=== PATIENT | female | born 1995 | race Hispanic/Latino ===

== ENCOUNTER 2017-05-13 11:40 | Emergency (ER) | payer OTHER ==
[2017-05-13 11:44] VITALS: BMI 22.8
[2017-05-13 11:45] VITALS: BP 112/61; PULSE 74; RESP 16; TEMP 98.5; O2SAT 99
[2017-05-13] MEDS ORDERED: Iohexol 240 (50 ml) PO ONE (12:03)
[2017-05-13] MEDS ORDERED: Sodium Chloride 0.9% 1,000 ML IV STA (12:03)
--- NOTE | 2017-05-13 12:15 | ED PDOC ---
HPI: Female Pain Time Seen by Provider: 05/13/17 11:52 Chief Complaint (Nursing): Female Genitourinary Chief Complaint (Provider): Pelvic Pain History Per: Patient History/Exam Limitations: no limitations Onset/Duration Of Symptoms: Days (x1 month) Current Symptoms Are (Timing): Still Present Additional Complaint(s): Jessa Gonzalez is a 21 year old female presenting to the ED, referred by Dr. Christensen, for an evaluation of on and off pelvic pain occurring for 1 month prior to arrival. The patient reports she was initially seen by her PMD for an evaluation of the pain and was referred to [facility]. She had blood work and urine culture completed and sent to urologist, Dr. Stokes. The patient also states having an ultrasound completed on 04/27/17 reporting one small cyst present on her right side. The patient was prescribed Bactrim, completed course, and is now on Macrobid. She states associated dysuria and urinary frequency. She reports having clear white vaginal discharge, but this is normal for her. The patient denies nausea, vomiting, diarrhea, chest pain, shortness of breath, dizziness, numbness, tingling, weakness, headache, or hematuria. PMD: MD Fermin & Gabino Rueda MD Past Medical History Reviewed: Historical Data, Nursing Documentation, Vital Signs Vital Signs: Last Vital Signs Temp 98.5 F 05/13/17 11:44 Pulse 74 05/13/17 11:44 Resp 16 05/13/17 11:44 BP 112/61 05/13/17 11:44 Pulse Ox 99 05/13/17 11:44 - Medical History PMH: No Chronic Diseases - Surgical History Surgical History: No Surg Hx - Family History Family History: States: No Known Family Hx - Social History Current smoker - smoking cessation education provided: No Ex-Smoker (has not smoked in the last 12 months): No Alcohol: None Drugs: Denies - Home Medications Home Medications: Ambulatory Orders Medication Instructions Recorded Ciprofloxacin HCl [Cipro] 500 mg PO BID 7 Days tab 05/13/17 Ibuprofen [Motrin] 600 mg PO TID 7 Days tab 05/13/17 Phenazopyridine HCl [Pyridium] 100 mg PO BID PRN 5 Days tab 05/13/17 - Allergies Allergies/Adverse Reactions: Allergies Allergy/AdvReac Type Severity Reaction Status Date / Time cefdinir [From Omnicef] Allergy RASH Verified 05/13/17 11:43 Review of Systems ROS Statement: Except As Marked, All Systems Reviewed And Found Negative Cardiovascular: Negative for: Chest Pain Respiratory: Negative for: Shortness of Breath Gastrointestinal: Positive for: Abdominal Pain. Negative for: Nausea, Vomiting , Diarrhea Genitourinary Female: Positive for: Dysuria, Frequency, Vaginal Discharge, Pelvic Pain. Negative for: Hematuria Neurological: Negative for: Weakness, Numbness, Headache, Dizziness, Other (no tingling) Physical Exam - Reviewed Nursing Documentation Reviewed: Yes Vital Signs Reviewed: Yes - Physical Exam Appears: Positive for: Non-toxic, No Acute Distress Head Exam: Positive for: ATRAUMATIC, NORMOCEPHALIC Skin: Positive for: Normal Color, Warm, Dry Eye Exam: Positive for: Normal appearance, EOMI ENT: Positive for: Normal ENT Inspection Neck: Positive for: Normal, Painless ROM, Supple Cardiovascular/Chest: Positive for: Regular Rate, Rhythm, Chest Non Tender. Negative for: Murmur Respiratory: Positive for: Normal Breath Sounds. Negative for: Respiratory Distress Gastrointestinal/Abdominal: Positive for: Soft, Tenderness (right lower quadrant and suprapubic tenderness ) Back: Positive for: Normal Inspection. Negative for: L CVA Tenderness, R CVA Tenderness Extremity: Positive for: Normal ROM. Negative for: Pedal Edema, Deformity Neurologic/Psych: Positive for: Alert, Oriented (x3). Negative for: Motor/ Sensory Deficits, Mood/Affect - Laboratory Results Result Diagrams: 05/13/17 12:22 05/13/17 12:22 Interpretation Of Abn Labs: urine wbc - ECG O2 Sat by Pulse Oximetry: 99 (RA) Pulse Ox Interpretation: Normal - CT Scan/US ct Other Rad Studies (CT/US): Read By Radiologist Other Rad Interpretation: constipation Medical Decision Making Medical Decision Making: Time: 11:52 Impression: Chronic pelvic pain Plan: * CMP * CBC (with differential) * Urinalysis * Urine Culture * NS 0.9% 1,000 ml IV 1,000 mls/hr * Omnipaque 240 (50 mL) PO * Toradol 15 mg IVP * CT Abd Pevlis PO & IV Contrast * Reevaluation Scribe Attestation: Documented by Margarita Fleming, acting as a scribe for Jordon Calhoun MD. Provider Scribe Attestation: All medical record entries made by the Scribe were at my direction and personally dictated by me. I have reviewed the chart and agree that the record accurately reflects my personal performance of the history, physical exam, medical decision making, and the department course for this patient. I have also personally directed, reviewed, and agree with the discharge instructions and disposition. Disposition - Clinical Impression Clinical Impression: Urinary tract infection, Constipation - Patient ED Disposition Is Patient to be Admitted: No Counseled Patient/Family Regarding: Studies Performed, Diagnosis, Need For Followup, Rx Given - Disposition Referrals: Giovanni Christensen MD [Staff Provider] - 05/16/17 Disposition: Routine/Home Disposition Time: 14:49 Condition: STABLE Additional Instructions: Return if not better in 3 days. Prescriptions: Ciprofloxacin HCl [Cipro] 500 mg PO BID 7 Days tab Ibuprofen [Motrin] 600 mg PO TID 7 Days tab Phenazopyridine HCl [Pyridium] 100 mg PO BID PRN 5 Days tab PRN Reason: Bladder Spasm Instructions: Urinary Tract Infection in Women (ED), Constipation (ED) Forms: [employer] ([place]), [facility] ED School/Work Excuse
[2017-05-13 12:28] LABS: BASO # 0.1 K/uL (0.0-0.2); EOS % 0.5 % (0.0-4.0); HEMATOCRIT 39.6 % (34.0-47.0); LYMPH # 2.6 K/uL (1.0-4.3); LYMPH % 35.4 % (20.0-40.0); MEAN CELL VOLUME 93.4 fl (81.0-99.0); MEAN CORPUSCULAR HEMOGLOBIN 31.6 pg (27.0-31.0); MEAN CORPUSCULAR HGB CONC 33.9 g/dL (33.0-37.0); MEAN PLATELET VOLUME 7.6 fl (7.2-11.7); MONO # 0.4 K/uL (0.0-0.8); MONO % 5.9 % (0.0-10.0); NEUT # 4.3 K/uL (1.8-7.0); NEUT % 57.2 % (50.0-75.0); RED CELL DISTRIBUTION WIDTH 12.8 % (11.5-14.5); WHITE BLOOD COUNT 7.5 K/uL (4.8-10.8)
[2017-05-13 12:45] LABS: RBC URINE 2 /hpf (0-3); RENAL EPITHELIAL < 1 /hpf (0-3); TRANSITIONAL EPITHIAL 1 /hpf (0-3); URINE BACTERIA RARE (<OCC); URINE BILIRUBIN NEGATIVE (NEGATIVE); URINE BLOOD NEGATIVE (NEGATIVE); URINE COLOR STRAW (YELLOW); URINE GLUCOSE (UA) NEG (Normal); URINE KETONE NEGATIVE (NEGATIVE); URINE LEUKOCYTE ESTERASE MOD Leu/uL (Negative); URINE PROTEIN NEGATIVE (NEGATIVE); URINE UROBILINOGEN 0.2-1.0 mg/dL (0.2-1.0); WBC URINE 37 /hpf (0-5)
[2017-05-13 12:54] LABS: ALB/GLOB RATIO 1.3 (1.0-2.1); ALKALINE PHOSPHATASE 47 U/L (38-126); ALT/SGPT 30 U/L (9-52); AST/SGOT 21 U/L (14-36); BILIRUBIN,TOTAL 0.7 mg/dl (0.2-1.3); BLOOD UREA NITROGEN 9 mg/dl (7-17); CALCIUM 9.2 mg/dL (8.4-10.2); CARBON DIOXIDE 23 mmol/L (22-30); CHLORIDE 108 mmol/L (98-107); GFR AFRICAN-AMERICAN > 60; GLUCOSE,RANDOM 90 mg/dL (65-105); POTASSIUM 3.8 MMOL/L (3.6-5.0); SODIUM 140 mmol/l (132-148)
[2017-05-13] MEDS ORDERED: Iohexol 300 100 ML IJ ONE (13:49)
--- NOTE | 2017-05-13 14:36 | CT ---
PROCEDURE: CT Abdomen and Pelvis with contrast HISTORY: abd pain COMPARISON: None. TECHNIQUE: Contrast dose: Omnipaque 300, 94 cc. Radiation dose: Total exam DLP = 682.97 mGy-cm. This CT exam was performed using one or more of the following dose reduction techniques: Automated exposure control, adjustment of the mA and/or kV according to patient size, and/or use of iterative reconstruction technique. FINDINGS: LOWER THORAX: Unremarkable. LIVER: Unremarkable. No gross lesion or ductal dilatation. GALLBLADDER AND BILE DUCTS: Unremarkable. PANCREAS: Unremarkable. No gross lesion or ductal dilatation. SPLEEN: Unremarkable. ADRENALS: Unremarkable. No mass. KIDNEYS AND URETERS: Unremarkable. No hydronephrosis. No solid mass. VASCULATURE: Unremarkable. No aortic aneurysm. BOWEL: Prominent fecal loading throughout the colon may indicate an element of constipation. Clinically correlate further. No obstruction. No gross mural thickening. APPENDIX: Not identified. No CT pattern suggest appendicitis at this time. PERITONEUM: Unremarkable. No free fluid. No free air. LYMPH NODES: Unremarkable. No enlarged lymph nodes. BLADDER: Distended but smooth walled. No suspicious adnexal findings. REPRODUCTIVE: Nonspecific but prominent endometrial changes versus myometrial changes. Consider follow-up pelvic ultrasound exam. BONES: No acute fracture. OTHER FINDINGS: None. IMPRESSION: Prominent fecal loading throughout the colon which may indicate an element of constipation. Remainder of the the abdomen segment of the exam is unremarkable. . In the pelvis, the endometrium or myometrium appears rather hypodense. Consider follow-up pelvic ultrasound for additional characterization. No suspicious adnexal findings.
== END 2017-05-13 15:08 | disposition home or self-care (01) ==
LOC: H.ER 11:40
DX: N39.0 Urinary tract infection, site not specified (principal); K59.00 Constipation, unspecified; G89.29 Other chronic pain; N89.8 Other specified noninflammatory disorders of vagina; Z87.891 Personal history of nicotine dependence
CPT/HCPCS: 74177; 80053; 81003; 81025; 85025; 87086; 96361; 96374; 99283; J1885; J7040; Q9966; Q9967